=== PATIENT | female | born 1955 | race Two or more races ===

== ENCOUNTER 2023-12-02 08:04 | Inpatient (IN) | payer OTHER ==
[~2023-12-02] VITALS: Ht 162.6 cm; Wt 67.0 kg
[2023-12-02 08:24] VITALS: PULSE 120; RESP 18; O2SAT 99
[2023-12-02 09:32] LABS: Basophils # (auto) 0.1 10 ^3/uL (0-0.2); Basophils % (auto) 0.9 % (0.0-2.0); Eosinophils # (auto) 0.1 10 ^3/uL (0-0.8); Eosinophils % (auto) 0.9 % (0.0-7.0); Hematocrit 40.2 % (36.0-46.0); Hemoglobin 13.8 g/dL (12.2-16.2); Lymphocytes # (auto) 1.3 10 ^3/uL (0.4-5.4); Lymphocytes % (auto) 16.1 % (10.0-50.0); Mean Corpuscular Hemoglobin 30.6 pg (28.0-32.0); Mean Corpuscular Hgb Conc. 34.4 g/dL (32.0-36.0); Mean Corpuscular Volume 88.7 fL (80.0-100.0); Monocytes # (auto) 0.9 10 ^3/uL (0-1.3); Monocytes % (auto) 11.3 % (0.0-12.0); Neutrophils # (auto) 5.6 10 ^3/uL (1.6-8.6); Neutrophils % (auto) 70.8 % (37.0-80.0); Red Blood Cells 4.53 10^6/uL (4.0-5.20); Red Cell Distribution Width 13.2 % (11.8-14.3); White Blood Cell 7.9 10^3/uL (4.4-10.8)
[2023-12-02 09:57] LABS: Chloride 106 mmol/L (98-107); Sodium 140 mmol/L (136-145)
[2023-12-02 09:58] LABS: Anion Gap 10 (5-15); Calcium 9.5 mg/dL (8.5-10.1); Carbon Dioxide 24 mmol/L (20-30)
[2023-12-02 10:03] LABS: BUN/Creatinine Ratio 15.4 (10.0-20.0); Blood Urea Nitrogen 12 mg/dL (9-23); Glucose 117 mg/dL (74-106)
[2023-12-02] MEDS ORDERED: MORPHINE SULFATE INJ 2 MG/ml SYRG IV PRN (11:15)
[2023-12-02] MEDS: POTASSIUM EFFERVESENT TAB 25 MEQ PO ONE (11:15)
[2023-12-02] MEDS ORDERED: NITROGLYCERIN 0.4 MG SL TAB SL PRN (11:15)
[2023-12-02] MEDS: ONDANSETRON HCL 4 MG/2 ML VIAL IV PRN (11:36)
[2023-12-02] MEDS: SODIUM CHLORIDE 0.9% 1,000 ML IV SCH (11:36)
[2023-12-02 12:07] LABS: Urine Bacteria FEW /hpf (None Seen); Urine Blood TRACE /uL (Negative); Urine Clarity Clear (Clear); Urine Color Yellow (Yellow); Urine Hyaline Cast MANY /lpf (0 - 2); Urine Mucus FEW (None Seen); Urine Protein, UAD 2+ (Negative); Urine Urobilinogen Normal (Negative); Urine WBC 2 /hpf (0 - 5)
[2023-12-02] MEDS: hydrALAZINE HCL 20 MG/ML VL IV PRN (13:07)
[2023-12-02] MEDS: SODIUM CHLORIDE 0.9% 1,000 ML IV ONE ×2 (15:38→15:39)
[2023-12-02] MEDS: ONDANSETRON HCL 4 MG/2 ML VIAL IV ONE (15:57)
[2023-12-02] MEDS: ACETAMINOPHEN 325 MG TAB PO PRN (17:27)
[2023-12-02 19:45] VITALS: PULSE 109; RESP 20; O2SAT 100
[2023-12-02] MEDS: HYDROcodone-ACET 5/325MG TAB PO ONE (21:18)
[2023-12-02 22:37] VITALS: BP 136/53; PULSE 122; PULSE 127; RESP 18; RESP 19; RESP 20; TEMP 97.5; O2SAT 99
[2023-12-02] MEDS ORDERED: BUSP5TAB51 PO (22:45)
[2023-12-02] MEDS: MAGNESIUM SULFATE 1GM/100ML 100 ML IV SCH (23:22)
[2023-12-03] VITALS (8 sets, daily range): BP systolic 124–174; BP diastolic 56–89; PULSE 80–120; RESP 18–20; TEMP 97.6–98.9; O2SAT 96–99
[2023-12-03 06:15] LABS: Basophils # (auto) 0.1 10 ^3/uL (0-0.2); Basophils % (auto) 0.6 % (0.0-2.0); Eosinophils # (auto) 0.1 10 ^3/uL (0-0.8); Eosinophils % (auto) 0.5 % (0.0-7.0); Hemoglobin 12.1 g/dL (12.2-16.2); Lymphocytes # (auto) 2.1 10 ^3/uL (0.4-5.4); Lymphocytes % (auto) 17.4 % (10.0-50.0); Mean Corpuscular Hemoglobin 30.4 pg (28.0-32.0); Mean Corpuscular Hgb Conc. 33.8 g/dL (32.0-36.0); Mean Corpuscular Volume 90.2 fL (80.0-100.0); Monocytes # (auto) 1.7 10 ^3/uL (0-1.3); Monocytes % (auto) 14.1 % (0.0-12.0); Neutrophils % (auto) 67.4 % (37.0-80.0); Red Blood Cells 3.99 10^6/uL (4.0-5.20); Red Cell Distribution Width 13.3 % (11.8-14.3); White Blood Cell 11.9 10^3/uL (4.4-10.8)
[2023-12-03 06:34] LABS: Alanine Aminotransferase 19 U/L (7-40); Albumin 3.9 g/dL (3.2-4.8); Alkaline Phosphatase 73 U/L (46-116); Anion Gap 10 (5-15); Aspartate Aminotransferase 33 U/L (13-40); Bilirubin, Total 1.2 mg/dL (0.2-1.0); Calcium 8.9 mg/dL (8.5-10.1); Carbon Dioxide 25 mmol/L (20-30); Chloride 104 mmol/L (98-107); Glucose 117 mg/dL (74-106); Potassium 2.8 mmol/L (3.5-5.1); Sodium 139 mmol/L (136-145); Total Protein 6.9 g/dL (5.7-8.2)
[2023-12-03 06:42] LABS: Blood Urea Nitrogen 23 mg/dL (9-23)
[2023-12-03] MEDS: THIAMINE 100mg/ml INJ (200mg/2ml VIAL) IV SCH (11:20)
[2023-12-03] MEDS: busPIRone HCL 10 MG TAB PO ONE (12:40)
[2023-12-03] MEDS: POTASSIUM CHL 20 Meq TABLET PO ONE (12:40)
[2023-12-03] MEDS: METOPROLOL TARTRATE 25 MG TAB PO ONE (12:40)
[2023-12-03 12:51] LABS: INR 1.08 (0.9-1.15); Partial Thromboplastin Time 26.4 SEC (24.5-34.5); Prothrombin Time 11.4 sec (9.3-11.8)
[2023-12-03] MEDS: busPIRone HCL 10 MG TAB PO SCH (21:09)
[2023-12-03] MEDS: METOPROLOL TARTRATE 25 MG TAB PO SCH (21:10)
[2023-12-04] VITALS (9 sets, daily range): BP systolic 106–152; BP diastolic 45–72; PULSE 79–113; RESP 14–20; TEMP 98.1–98.6; O2SAT 95–100
[2023-12-04 07:03] LABS: Alanine Aminotransferase 19 U/L (7-40); Alkaline Phosphatase 70 U/L (46-116); Anion Gap 11 (5-15); Aspartate Aminotransferase 29 U/L (13-40); BUN/Creatinine Ratio 18.8 (10.0-20.0); Blood Urea Nitrogen 16 mg/dL (9-23); Calcium 9.2 mg/dL (8.5-10.1); Carbon Dioxide 24 mmol/L (20-30); Chloride 101 mmol/L (98-107); Cholesterol 178 mg/dL (< 200); Glucose 107 mg/dL (74-106); HDL Cholesterol 47 mg/dL (40-59); LDL Cholesterol 121 mg/dL (< 100); Magnesium 1.4 mg/dL (1.6-2.6); Potassium 3.5 mmol/L (3.5-5.1); Sodium 136 mmol/L (136-145); Triglycerides 125 mg/dL (< 150)
[2023-12-04 07:04] LABS: Bilirubin, Total 1.2 mg/dL (0.2-1.0); Total Protein 7.1 g/dL (5.7-8.2)
[2023-12-04] MEDS: TEMAZEPAM 15 MG CAP PO ONE (22:29)
[2023-12-05 01:00] VITALS: BP 109/41; PULSE 78; RESP 18; TEMP 98; O2SAT 94
[2023-12-05 05:00] VITALS: BP 121/57; PULSE 88; RESP 20; TEMP 98; O2SAT 95
[2023-12-05 07:30] VITALS: PULSE 83; RESP 17; O2SAT 95
[2023-12-05 08:21] VITALS: BP 131/54; PULSE 90; RESP 16; TEMP 97.4; O2SAT 95
[2023-12-05] MEDS ORDERED: BUSP5TAB51 PO (10:27)
[2023-12-05] MEDS ORDERED: METO25TA93 PO (10:27)
[2023-12-05] MEDS: MAGNESIUM OXIDE 400 MG TAB PO ONE (10:35)
[2023-12-05 11:57] VITALS: BP 118/49; PULSE 72; RESP 17; TEMP 98.2; O2SAT 94
[2023-12-05 12:02] VITALS: BP 118/49; PULSE 72; RESP 17; TEMP 98.2; O2SAT 94
== END 2023-12-05 15:44 | disposition home or self-care (01) | DRG 151 ==
LOC: EDBD 08:04 → ER 08:20 → TELE 11:09 → TELE-CENTR 22:20
PROVIDERS: ADMIT Nurse Practitioner Family; ATTEND Internal Medicine Geriatric Medicine
DX: R04.0 Epistaxis (principal); E87.6 Hypokalemia; I16.0 Hypertensive urgency; I10 Essential (primary) hypertension; F41.9 Anxiety disorder, unspecified; E83.42 Hypomagnesemia; Z79.899 Other long term (current) drug therapy; Z91.199 Patient's noncompliance with other medical treatment and regimen due to unspecified reason; R00.0 Tachycardia, unspecified
CPT/HCPCS: 36415; 80048; 80053; 80061; 81001; 83735; 84443; 85025; 85610; 85730; 93306; G0378; J2405